=== PATIENT | female | born 1995 | race Caucasian/White ===

== ENCOUNTER 2020-11-07 08:16 | Observation (INO) | payer OTHER ==
[2020-11-07] MEDS ORDERED: LORazepam 2 MG/ML INJ IV STA (08:36)
[2020-11-07] MEDS ORDERED: SODIUM CHLORIDE 0.9% 1,000 ML IV STA (08:36)
--- NOTE | 2020-11-07 08:42 | ED ---
General Adult HPI - General Chief complaint: Chest Pain Stated complaint: Chest pain/Right side numbness Time Seen by Provider: 11/07/20 08:22 Source: patient Mode of arrival: wheelchair Limitations: no limitations - History of Present Illness Initial comments: Dictation was produced using [employer] dictation software. please excuse any grammatical, word or spelling errors. This patient was cared for during a federal and state declared state of ergency secondary to Covid 19 Chief Complaint: 25-year-old female with no past medical history presents with chest pain, facial paresthesias and right upper extremity paresthesias History of Present Illness: 25-year-old female she states that she's been under a lot of stress over the last 24-48 hours due to family personal issues. Patient states that approximately midnight last night she began experiencing some sharp chest pain. States it was worse with breathing she denies any rad iation of symptoms. At approximately 3 AM this morning she noted that her whole right face was strange. She describes it as though it felt like it was swollen. She also states that she had similar sensation to her entire right upper extremity. Patient has any history of stroke. She denies any medical complications. She does have an IUD for control. Takes no other medications at this time. Patient states she does complain of headache but she has headaches often. Patient denies any history of diagnosis of anxiety. No nausea vomiting. Denies any constitutional symptoms. The ROS documented in this emergency department record has been reviewed and confirmed by me. Those systems with pertinent positive or negative responses have been documented in the HPI. All other systems are other negative and/or noncontributory. PHYSICAL EXAM: General Impression: Alert and oriented x3, not in acute distress HEENT: Normocephalic atraumatic, extra-ocular movements intact, pupils equal and reactive to light bilaterally, mucous membranes moist. Cardiovascular: Heart regular rate and rhythm, no murmurs Chest: Able to complete full sentences, no retractions, no tachypnea, lungs clear to auscultation bilaterally Abdomen: abdomen soft, non-tender, non-distended, no organomegaly Musculoskeletal: Pulses present and equal in all extremities, no peripheral edema Motor: no focal deficits noted Neurological: CN II-XII grossly intact, NIH of 1 for abnormal sensation to light touch to the right lower face, there is no facial droop. Rest of NIH score Skin: Intact with no visualized rashes Psych: Tearful, anxious ED course: 25 yo Year old female presents with chest pain and focal neurologic deficit. Vital signs upon arrival shows heart rate of 128, rest of vital signs upon arrival are within acceptable limits. Patient's physical examination is mostly benign. She does complain of some abnormal sensation to light touch of the right lower face. Rest of neurologic exam is normal. She does appear to be moderately anxious. She does report that she's been severely anxious over the last 12 hours. At this point is unlikely that patient's symptoms represent CVA and more likely anxiety reaction. She does not have a murmur to suggest a patent foramen ovale.9:50 AM: reevaluated after having been administered anxiolytic. She still continues to have abnormal sensation to the right lower face. Given that its forehead sparing of some concern of central process causing facial paresthesias. Given that there was some involvement with her right upper extremity recently there is suspicion of CVA.Lavatory evaluation obtained. CBC, metabolic panel is unremarkable. Chest x-ray and brain CT are negative. Patient reevaluated at 11 AM and continues to complain of right lower facial paresthesias. Given that patient has persistent symptoms that is unresolved with anxiolytics we'll have patient admitted to observation with consultation to neurology. EKG interpretation: Ventricular rate 114, sinus tachycardia, [place] interval 160, QRS 80, QTc 432. No [place] prolongation, no QTC prolongation, no ST or T-wave changes noted. No old EKG for comparison. Overall, this EKG is unremarkable - Related Data Home Medications Medication Instructions Recorded Confirmed Ibuprofen [Advil] 800 mg PO Q8HR PRN 11/07/20 11/07/20 Levonorgestrel [Mirena] 1 dose IY DIRECTED 11/07/20 11/07/20 Allergies Allergy/AdvReac Type Severity Reaction Status Date / Time No Known Allergies Allergy Verified 11/07/20 09:32 Review of Systems ROS Statement: Those systems with pertinent positive or pertinent negative responses have been documented in the HPI. ROS Other: All systems not noted in ROS Statement are negative. Past Medical History Past Medical History: No Reported History History of Any Multi-Drug Resistant Organisms: None Reported Past Surgical History: No Surgical Hx Reported Past Psychological History: No Psychological Hx Reported Smoking Status: Never smoker Past Alcohol Use History: None Reported Past Drug Use History: None Reported General Exam Limitations: no limitations Course Vital Signs 11/07/20 11/07/20 11/07/20 08:18 09:20 10:00 Temperature 99.2 F Pulse Rate 128 H 101 H Respiratory 18 18 18 Rate Blood Pressure 148/85 114/70 O2 Sat by Pulse 97 97 97 Oximetry Medical Decision Making - Lab Data Result diagrams: 11/07/20 09:31 11/07/20 09:31 Lab Results 11/07/20 11/07/20 11/07/20 Range/Units 08:36 09:31 09:31 WBC 6.0 (3.8-10.6) k/uL RBC 4.99 (3.80-5.40) m/uL Hgb 14.4 (11.4-16.0) gm/dL Hct 43.1 (34.0-46.0) % MCV 86.5 (80.0-100.0) fL MCH 28.8 (25.0-35.0) pg MCHC 33.4 (31.0-37.0) g/dL RDW 13.2 (11.5-15.5) % Plt Count 239 (150-450) k/uL MPV 6.8 Neutrophils % 75 % Lymphocytes % 11 % Monocytes % 10 % Eosinophils % 2 % Basophils % 1 % Neutrophils # 4.5 (1.3-7.7) k/uL Lymphocytes # 0.6 L (1.0-4.8) k/uL Monocytes # 0.6 (0-1.0) k/uL Eosinophils # 0.1 (0-0.7) k/uL Basophils # 0.0 (0-0.2) k/uL PT (9.0-12.0) sec INR (<1.2) APTT (22.0-30.0) sec Sodium 138 (137-145) mmol/L Potassium 4.4 (3.5-5.1) mmol/L Chloride 105 (98-107) mmol/L Carbon Dioxide 24 (22-30) mmol/L Anion Gap 9 mmol/L BUN 12 (7-17) mg/dL Creatinine 0.85 (0.52-1.04) mg/dL Est GFR (CKD-EPI)AfAm >90 (>60 ml/min/1.73 sqM) Est GFR (CKD-EPI)NonAf >90 (>60 ml/min/1.73 sqM) Glucose 113 H (74-99) mg/dL Calcium 9.5 (8.4-10.2) mg/dL Total Bilirubin 0.5 (0.2-1.3) mg/dL AST 26 (14-36) U/L ALT 26 (4-34) U/L Alkaline Phosphatase 68 (38-126) U/L Total Protein 7.5 (6.3-8.2) g/dL Albumin 4.4 (3.5-5.0) g/dL Urine HCG, Qual Not Detected (Not Detectd) 11/07/20 Range/Units 09:31 WBC (3.8-10.6) k/uL RBC (3.80-5.40) m/uL Hgb (11.4-16.0) gm/dL Hct (34.0-46.0) % MCV (80.0-100.0) fL MCH (25.0-35.0) pg MCHC (31.0-37.0) g/dL RDW (11.5-15.5) % Plt Count (150-450) k/uL MPV Neutrophils % % Lymphocytes % % Monocytes % % Eosinophils % % Basophils % % Neutrophils # (1.3-7.7) k/uL Lymphocytes # (1.0-4.8) k/uL Monocytes # (0-1.0) k/uL Eosinophils # (0-0.7) k/uL Basophils # (0-0.2) k/uL PT 10.3 (9.0-12.0) sec INR 1.0 (<1.2) APTT 25.8 (22.0-30.0) sec Sodium (137-145) mmol/L Potassium (3.5-5.1) mmol/L Chloride (98-107) mmol/L Carbon Dioxide (22-30) mmol/L Anion Gap mmol/L BUN (7-17) mg/dL Creatinine (0.52-1.04) mg/dL Est GFR (CKD-EPI)AfAm (>60 ml/min/1.73 sqM) Est GFR (CKD-EPI)NonAf (>60 ml/min/1.73 sqM) Glucose (74-99) mg/dL Calcium (8.4-10.2) mg/dL Total Bilirubin (0.2-1.3) mg/dL AST (14-36) U/L ALT (4-34) U/L Alkaline Phosphatase (38-126) U/L Total Protein (6.3-8.2) g/dL Albumin (3.5-5.0) g/dL Urine HCG, Qual (Not Detectd) Disposition Clinical Impression: Neurological deficit present Disposition: ADMITTED IP TO THIS [facility] Condition: Fair Referrals: None,Stated [Primary Care Provider] - 1-2 days Decision Time: 11:02
[2020-11-07 09:58] LABS: Basophils % (A) 1 %; Eosinophils # (A) 0.1 k/uL (0-0.7); Eosinophils % (A) 2 %; HCT 43.1 % (34.0-46.0); HGB 14.4 gm/dL (11.4-16.0); Lymphocytes # (A) 0.6 k/uL (1.0-4.8); Lymphocytes % (A) 11 %; MCH 28.8 pg (25.0-35.0); MCHC 33.4 g/dL (31.0-37.0); MCV 86.5 fL (80.0-100.0); Mean Platelet Volume 6.8; Monocytes # (A) 0.6 k/uL (0-1.0); Monocytes % (A) 10 %; Neutrophils # (A) 4.5 k/uL (1.3-7.7); Neutrophils % (A) 75 %; Platelet Count 239 k/uL (150-450); RBC 4.99 m/uL (3.80-5.40); RDW 13.2 % (11.5-15.5)
[2020-11-07 10:02] LABS: Partial Thromboplastin Time 25.8 sec (22.0-30.0); Prothrombin Time 10.3 sec (9.0-12.0)
[2020-11-07 10:03] LABS: ALT 26 U/L (4-34); AST 26 U/L (14-36); African American GFR (CKD) >90 (>60 ml/min/1.73 sqM); Albumin 4.4 g/dL (3.5-5.0); Alkaline Phosphatase 68 U/L (38-126); Anion Gap 9 mmol/L; Blood Urea Nitrogen 12 mg/dL (7-17); Calcium 9.5 mg/dL (8.4-10.2); Carbon Dioxide 24 mmol/L (22-30); Chloride 105 mmol/L (98-107); Glucose 113 mg/dL (74-99); Non-African American GFR(CKD) >90 (>60 ml/min/1.73 sqM); Potassium 4.4 mmol/L (3.5-5.1); Sodium 138 mmol/L (137-145); Total Bilirubin 0.5 mg/dL (0.2-1.3); Total Protein 7.5 g/dL (6.3-8.2)
--- NOTE | 2020-11-07 10:44 | CT ---
EXAMINATION TYPE: CT brain wo con DATE OF EXAM: 11/07/2020 COMPARISON: None. HISTORY: headache, dizziness CT DLP: 1031.4 mGycm. Automated Exposure Control for Dose Reduction was Utilized. TECHNIQUE: CT scan of the head is performed without contrast. FINDINGS: There is no acute intracranial hemorrhage, mass effect, or midline shift identified. The ventricles and sulci are within normal limits in size. Merida-white matter differentiation is maintain ed. The globes are intact and the visualized sinuses are clear. IMPRESSION: Unremarkable study.
--- NOTE | 2020-11-07 10:53 | XR ---
EXAMINATION TYPE: XR chest 2V DATE OF EXAM: 11/07/2020 COMPARISON: NONE HISTORY: Chest pain. Right-sided facial numbness. TECHNIQUE: Frontal and lateral views of the chest are obtained. FINDINGS: There is no focal air space opacity, pleural effusion, or pneumothorax seen. The cardiac silhouette size is within normal limits. The osseous structures are intact. IMPRESSION: No acute cardiopulmonary process.
[2020-11-07] MEDS ORDERED: ONDANSETRON 4 MG/2 ML VIAL IVP STA (11:00)
[2020-11-07] MEDS ORDERED: KETOROLAC 15 MG/ML 1 ML VIAL IVP STA (11:00)
[2020-11-07] MEDS ORDERED: diphenhydrAMINE 50 MG/ML 1 ML VIAL IVP STA (11:00)
[2020-11-07] MEDS ORDERED: ASPIRIN 81 MG PO STA (11:00)
[2020-11-07] MEDS ORDERED: NALOXONE 0.4 MG/ML 1 ML VIAL IV PRN (11:02)
[2020-11-07] MEDS ORDERED: PROCHLORPERAZINE INJ 10 MG/2 ML VIAL IVP PRN (11:16)
[2020-11-07] MEDS: PANTOPRAZOLE 40 MG/10 ML VIAL IVP SCH (11:26)
[2020-11-07] MEDS: SODIUM CHLORIDE 0.9% 1,000 ML IV SCH (11:26)
--- NOTE | 2020-11-07 12:31 | P.HPIM ---
History of Present Illness Patient is a pleasant 25-year-old female came in with complaints of retrosternal chest pain which is burning sensation which has been present since yesterday without any diaphoresis without any nausea lightheadedness patient was also complaining of paresthesias in the right arm as well as right lower face below the right eye. Patient of had a CT of the head which did not show any significant abnormality showed some nonspecific air ST-T wave changes in lead 5. Patient troponin is negative. Patient and his significant family history of premature coronary artery disease. Patient is not a smoker doesn't have any other medical issues. Patient does take Motrin on regular basis for her headache she was diagnosed with migraine patient has complaints of migraine with aura. was also complaining of some generalized body aches although is not exposed to anyone with Covid 19 Review of Systems REVIEW OF SYSTEMS: CONSTITUTIONAL: No fever, no malaise, no fatigue. HEENT: No recent visual problems or hearing problems. Denied any sore throat. CARDIOVASCULAR: No orthopnea, PND, no palpitations, no syncope. PULMONARY: No shortness of breath, no cough, no hemoptysis. GASTROINTESTINAL: No diarrhea, no nausea, no vomiting. NEUROLOGICAL: As mentioned in HPI HEMATOLOGICAL: Denies any bleeding or petechiae. GENITOURINARY: Denies any burning micturition, frequency, or urgency. MUSCULOSKELETAL/RHEUMATOLOGICAL: Denies any joint pain, swelling, or any muscle pain. ENDOCRINE: Denies any polyuria or polydipsia. The rest of the 14-point review of systems is negative. Past Medical History Past Medical History: No Reported History History of Any Multi-Drug Resistant Organisms: None Reported Past Surgical History: No Surgical Hx Reported Past Psychological History: No Psychological Hx Reported Smoking Status: Never smoker Past Alcohol Use History: None Reported Past Drug Use History: None Reported Medications and Allergies Home Medications Medication Instructions Recorded Confirmed Type Ibuprofen [Advil] 800 mg PO Q8HR PRN 11/07/20 11/07/20 History Levonorgestrel [Mirena] 1 dose IY DIRECTED 11/07/20 11/07/20 History Allergies Allergy/AdvReac Type Severity Reaction Status Date / Time No Known Allergies Allergy Verified 11/07/20 09:32 Physical Exam Vitals: Vital Signs Temp Pulse Resp BP Pulse Ox 11/07/20 11:00 115 H 18 123/90 97 11/07/20 10:00 18 97 11/07/20 09:20 101 H 18 114/70 97 11/07/20 08:18 99.2 F 128 H 18 148/85 97 Intake and Output 11/06/20 11/07/20 11/07/20 22:59 06:59 14:59 Other: Weight 81.647 kg PHYSICAL EXAMINATION: GENERAL: The patient is alert and oriented x3, not in any acute distress. Well developed, well nourished. HEENT: Pupils are round and equally reacting to light. EOMI. No scleral icterus. No conjunctival pallor. Normocephalic, atraumatic. No pharyngeal erythema. No thyromegaly. CARDIOVASCULAR: S1 and S2 present. No murmurs, rubs, or gallops. PULMONARY: Chest is clear to auscultation, no wheezing or crackles. ABDOMEN: Soft, nontender, nondistended, normoactive bowel sounds. No palpable organomegaly. MUSCULOSKELETAL: No joint swelling or deformity. EXTREMITIES: No cyanosis, clubbing, or pedal edema. NEUROLOGICAL: Gross neurological examination did not reveal any focal deficits. SKIN: No rashes. Results CBC & Chem 7: 11/07/20 09:31 11/07/20 09:31 Labs: Abnormal Lab Results - Last 24 Hours (Table) 11/07/20 11/07/20 11/07/20 Range/Units 09:31 09:31 09:31 Lymphocytes # 0.6 L (1.0-4.8) k/uL D-Dimer 0.86 H (<0.60) mg/L FEU Glucose 113 H (74-99) mg/dL Coronavirus (PCR) (Not Detectd) 11/07/20 Range/Units 11:20 Lymphocytes # (1.0-4.8) k/uL D-Dimer (<0.60) mg/L FEU Glucose (74-99) mg/dL Coronavirus (PCR) Detected A (Not Detectd) Assessment and Plan Plan: 1 chest pain patient has a retrosternal burning sensation mostly consistent with the gastroesophageal reflux disease. Patient will be started on Protonix. Discontinue all nonsteroidal anti-inflammatory medications will also rule out acute coronary syndromes and cardiology will be consulted because of some T-wave inversions in lead 5. Although patient chest pain is atypical for coronary artery disease. -Sinus Tachycardia probably secondary to anxiety patient is sinus tachycardia and anxiety does explain most of her symptoms -Paresthesias of the right arm as well as the right lower face: CT of the head is negative neurology was consulted by year. -History of migraine with aura. Use Compazine IV for migraine attacks. If patient needs more than 2 dose of 10 mg of Compazine and patient will be given Benadryl to avoid any extrapyramidal side effects from Compazine. -DVT prophylaxis early ambulation
--- NOTE | 2020-11-07 13:19 | CT ---
EXAMINATION TYPE: CT angio chest DATE OF EXAM: 11/07/2020 1:02 PM COMPARISON: None HISTORY: postive d dimer CT DLP: 348.2 mGycm Automated exposure control for dose reduction was used. CONTRAST: CTA scan of the thorax is performed with IV Contrast, patient injected with 100 mL of Isovue 370, pul monary embolism protocol. . FINDINGS: LUNGS: Patchy areas of groundglass changes are seen in the right upper lobe and posteriorly bilateral lower lobes greater on the left. No pleural effusion or pneumothorax. No sizable pulmonary nodule. MEDIASTINUM: There is limited exam due to artifact limiting evaluation of the pulmonary arteries. Can not exclude a filling defect within the left lower lobe distal branch or within the right upper lobe. Heart size is prominent. Aorta of normal caliber. OTHER: Hypodensities within the liver are indeterminant with the largest measuring approximately 1 c m near the caudate lobe measuring approximate 14 Hounsfield units. Small hiatal hernia noted. IMPRESSION: 1. Limited assessment of the pulmonary arteries due to artifact. Could not exclude left lower lobe or right upper lobe small distal branch embolism. Correlate clinically and with VQ scan as clinically w arranted given limitation of exam. 2. Subsegmental groundglass changes may been the basis of atelectasis correlate clinically to exclude early pneumonitis.
--- NOTE | 2020-11-07 13:41 | P.CRDCN ---
History of Present Illness History of present illness: HISTORY OF PRESENTING ILLNESS This is a pleasant 25-year-old female with no significant past medical history. 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 We have been asked to see in consultation for chest pain. Patient is seen and examined in the emergency department . Mid sternal 8/10 chest pain started yesterday at noon, and lasted all day. Pain radiates to her right breast. At night, she took a hot bath and started having shortness of breath and lightheadedness. Chest pain does feel sharp at times. Associated symptoms include cough, shortness of breath, fatigue, numbness to right side of face. Chest pain worsens with deep breathing and with palpation of chest. Does not change with activity. Denies symptoms of fever, chills, orthopnea, palpitations, lower extremity edema. Patient denies history of diabetes, stroke, hypertension, [place], family heart di sease. Patients states she does not take any medication. She works for a [employer] company, has three kids, does drink caffeine. Denies alcohol and illicit drug use. Laboratory data reviewed, Covid 19 positive, WBC 6.0, hemoglobin 14.4, platelets 239, d-dimer 0.86, sodium 138, potassium 4.4, renal function stable with creatinine 0.85 BUN/creatinine 12, troponin negative 1. Vital signs BP 122/90 heart rate 1:15 temp 99.2 SpO2 97% on room air DIAGNOSTICS EKG reveals sinus tachycardia no acute ST- Twave changes. Chest xray no acute cardiopulmonary process. Brain CT- unremarkable CT chest- Limited assessment of the pulmonary arteries due to artifact- could not exclude left lower lobe or right upper lobe small distal branch embolism. Correlate clinically and with VQ scan as clinically warranted given limited exam. Patchy areas of groundglass changes are seen in the right upper lobe and posteriorly bilateral lower lobes greater on the left REVIEW OF SYSTEMS At the time of my exam: CONSTITUTIONAL: Denies fever or chills. CARDIOVASCULAR: +chest pain, +shortness of breath, Denies orthopnea, PND or palpitations. RESPIRATORY: + cough. GASTROINTESTINAL: Denies abdominal pain, diarrhea, constipation, nausea or vomiting. MUSCULOSKELETAL: Denies myalgias. NEUROLOGIC: +numbness to right side of face, +numbness to right arm. Denies tingling, headacbe or weakness. ENDOCRINE: + fatigue Denies weight change, polydipsia or polyurina. GENITOURINARY: Denies burning, hematuria or urgency with micturation. HEMATOLOGIC: Denies history of anemia or bleeding. PHYSICAL EXAMINATION CONSTITUTIONAL: No apparent distress. HEENT: Head is normocephalic. Pupils are equal, round. Sclerae anicteric. Mucous membranes of the mouth are moist. No JVD. No carotid bruit. CHEST EXAMINATION: Lungs are clear to auscultation. No chest wall tenderness is noted on palpation or with deep breathing. HEART EXAMINATION: Regular rate and rhythm. S1, S2 heard. No murmurs, gallops or rub. ABDOMEN: Soft, nontender. Positive bowel sounds. EXTREMITIES: 2+ peripheral pulses, no lower extremity edema and no calf tenderness. NEUROLOGIC EXAMINATION: Patient is awake, alert and oriented x3. ASSESSMENT -Covid-19 Infection -Atypical chest pain PLAN -Patient with atypical chest pain. EKG with no acute changes, troponin negative unlikely ACS. Most likely related to COVID-19 infection. -We will sign off at this time, thank you for this consult. Nurse Practitioner note has been reviewed, I agree with a documented findings and plan of care. Patient was seen and examined. Past Medical History Past Medical History: No Reported History History of Any Multi-Drug Resistant Organisms: None Reported Past Surgical History: No Surgical Hx Reported Past Psychological History: No Psychological Hx Reported Smoking Status: Never smoker Past Alcohol Use History: None Reported Past Drug Use History: None Reported Medications and Allergies Home Medications Medication Instructions Recorded Confirmed Type Ibuprofen [Advil] 800 mg PO Q8HR PRN 11/07/20 11/07/20 History Levonorgestrel [Mirena] 1 dose IY DIRECTED 11/07/20 11/07/20 History Allergies Allergy/AdvReac Type Severity Reaction Status Date / Time No Known Allergies Allergy Verified 11/07/20 09:32 Physical Exam Vitals: Vital Signs Temp Pulse Resp BP Pulse Ox 11/07/20 13:14 99.2 F 115 H 18 123/90 97 11/07/20 11:00 115 H 18 123/90 97 11/07/20 10:00 18 97 11/07/20 09:20 101 H 18 114/70 97 11/07/20 08:18 99.2 F 128 H 18 148/85 97 Intake and Output 11/06/20 11/07/20 11/07/20 22:59 06:59 14:59 Other: Weight 81.647 kg Results 11/07/20 09:31 11/07/20 09:31 Cardiac Enzymes 11/07/20 11/07/20 Range/Units 09:31 09:31 AST 26 (14-36) U/L Troponin I <0.012 (0.000-0.034) ng/mL Coagulation 11/07/20 Range/Units 09:31 PT 10.3 (9.0-12.0) sec APTT 25.8 (22.0-30.0) sec CBC 11/07/20 Range/Units 09:31 WBC 6.0 (3.8-10.6) k/uL RBC 4.99 (3.80-5.40) m/uL Hgb 14.4 (11.4-16.0) gm/dL Hct 43.1 (34.0-46.0) % Plt Count 239 (150-450) k/uL Comprehensive Metabolic Panel 11/07/20 Range/Units 09:31 Sodium 138 (137-145) mmol/L Potassium 4.4 (3.5-5.1) mmol/L Chloride 105 (98-107) mmol/L Carbon Dioxide 24 (22-30) mmol/L BUN 12 (7-17) mg/dL Creatinine 0.85 (0.52-1.04) mg/dL Glucose 113 H (74-99) mg/dL Calcium 9.5 (8.4-10.2) mg/dL AST 26 (14-36) U/L ALT 26 (4-34) U/L Alkaline Phosphatase 68 (38-126) U/L Total Protein 7.5 (6.3-8.2) g/dL Albumin 4.4 (3.5-5.0) g/dL Current Medications Generic Name Dose Route Start Last Admin Trade Name Freq PRN Reason Stop Dose Admin Acetaminophen 650 mg 11/07/20 11:02 Acetaminophen Tab 325 Mg Tab PO Q6HR PRN Mild Pain or Fever > 100.5 Sodium Chloride 1,000 mls @ 20 mls/hr 11/07/20 11:15 11/07/20 11:26 Saline 0.9% IV 20 mls/hr .Q24H DELONTE Administration Naloxone HCl 0.2 mg 11/07/20 11:02 Naloxone 0.4 Mg/Ml 1 Ml Vial IV Q2M PRN Opioid Reversal Pantoprazole Sodium 40 mg 11/07/20 11:15 11/07/20 11:26 Pantoprazole 40 Mg/10 Ml Vial IVP 40 mg DAILY DELONTE Administration Prochlorperazine Edisylate 10 mg 11/07/20 11:16 Prochlorperazine Inj 10 Mg/2 Ml Vial IVP Q6H PRN Nausea And Vomiting Intake and Output 11/06/20 11/07/20 11/07/20 22:59 06:59 14:59 Other: Weight 81.647 kg Patient Weight 11/08/20 06:59 Weight 81.647 kg 11/07/20 09:31 11/07/20 09:31
[2020-11-07] MEDS: ACETAMINOPHEN TAB 325 MG TAB PO PRN (19:42)
--- NOTE | 2020-11-08 09:09 | P.CNNES ---
History of Present Illness Consult date: 11/07/20 Requesting physician: Alexis Hedrick Reason for Consult: Suspect CVA History of Present Illness: Patient is a 25-year-old female came to the hospital this morning at 8:16 AM came to the hospital for chest pain and facial paresthesias and right upper extremity paresthesias. Patient states that yesterday she was working around the house, when around noon, she developed chest pain, which she rated 6/10. It was not as bad earlier. The chest pain continued, but around midnight last night, the chest pain got worse, which she rated 9/10. She also developed numbness of the right side of the face, neck, right shoulder to the right upper extremity all the way to the fingers. The symptoms got worse at around 2 AM. Patient states that her right side of the face felt drawn, although her did notnotice any facial droop. No slurred speech. Patient did not want to bring her children to the ER, therefore she waited until she got a coverage analyst at around 8, therefore she decided to come to the ER. Patient states that numbness of the right upper extremity has resolved, but she still has some persistent numbness of the right side of the cheek. Patient states that for the last 24-48 hours, patient has been under a lot of stress for some family issues. Vital signs on arrival blood pressure 148/85, pulse rate 128, temperature 99.2. CT head is normal. Visualized paranasal sinuses are normal. Chest x-ray is normal. EKG shows sinus tachycardia, nonspecific ST and T-wave abnormality. CTA of the chest shows limited assessment of the pulmonary arteries due to artifact. Could not exclude left lower lobe or right upper lobe small distal branch embolism. Correlate clinically with VQ scan as clinically warranted given limitation of exam. Subsegmental groundglass changes may be on the basis of atelectasis correlate clinically to exclude early pneumonitis. Patient's blood test shows normal CBC, PT/PTT,'s Chem-7. Hepatic panel is normal, urine hCG negative, maldonado virus PCR. Patient denies any fever or chills. She has just developed cough while in the hospital. She does not remember any sick contacts. Patient denies any tobacco, alcohol, diabetes hypertension. Never had history of strokes or TIA. Patient currently is on Mirena IUD for last 5 years. Patient has history of migraines since she was age 8 years of age. At present she gets migraines 2 or 3 times a week. She does have positive family history of migraines in her mother and grandmother as well. Patient states that yesterday at around noon when the chest pain started, she also started with a migraine, with got worse at midnight which she rated 9/10. Patient however never had any aura associated with migraine, therefore this right facial and arm numbness is new. Review of Systems As above in detail. All other 14 points of review of systems completely unremarkable. Past Medical History Past Medical History: No Reported History History of Any Multi-Drug Resistant Organisms: None Reported Past Surgical History: No Surgical Hx Reported Past Psychological History: No Psychological Hx Reported Smoking Status: Never smoker Past Alcohol Use History: None Reported Past Drug Use History: None Reported Medications and Allergies Home Medications Medication Instructions Recorded Confirmed Type Ibuprofen [Advil] 800 mg PO Q8HR PRN 11/07/20 11/07/20 History Levonorgestrel [Mirena] 1 dose IY DIRECTED 11/07/20 11/07/20 History Allergies Allergy/AdvReac Type Severity Reaction Status Date / Time No Known Allergies Allergy Verified 11/07/20 09:32 Physical Examination - Vital Signs Vital Signs: Vital Signs Temp Pulse Pulse Resp BP BP Pulse Ox 11/07/20 15:00 98.3 F 92 22 129/84 96 11/07/20 13:14 99.2 F 115 H 18 123/90 97 11/07/20 13:00 99.2 F 115 H 18 123/90 97 11/07/20 11:00 115 H 18 123/90 97 11/07/20 10:00 18 97 11/07/20 09:20 101 H 18 114/70 97 11/07/20 08:18 99.2 F 128 H 18 148/85 97 Intake and Output 11/07/20 11/07/20 11/07/20 06:59 14:59 22:59 Intake Total 200 Balance 200 Intake: Oral 200 Other: Weight 81.647 kg On examination patient is a young female, in no acute distress. Patient is alert awake oriented to time place and person. Speech and language functions are normal. Attention, concentration and fund of knowledge is adequate. On cranial examination pupils are round and reactive to light, visual naranjo are full on confrontation, extraocular muscles are intact with no nystagmus. Face is symmetric, tongue protrudes the midline. Palatal elevation and sensation normal, hearing and shoulder shrug normal, facial sensation is normal. On muscle strength testing there is mild right pronation no drift. The strength is normal in arms and legs distally and proximally. Reflexes are symmetric, plantars downgoing sensory touch is equal with no neglect. No ataxia for rexbzy-ed-swfs testing tone and bulk of muscles normal. Gait normal. No obvious bruit, S1 and S2 audible. Abdomen soft nontender. Peripheral pulses present. No edema. Results - Laboratory Findings CBC and BMP: 11/07/20 09:31 11/07/20 09:31 Abnormal Lab Findings: Abnormal Labs 11/07/20 11/07/20 11/07/20 09:31 09:31 09:31 Lymphocytes # 0.6 L D-Dimer 0.86 H Glucose 113 H Coronavirus (PCR) 11/07/20 11:20 Lymphocytes # D-Dimer Glucose Coronavirus (PCR) Detected A Assessment and Plan Assessment: * 25-year-old female with long-standing history of migraine headaches, developed chest pain, and a migraine yesterday at around noon, which got worse at midnight, and then she started having numbness of the right side of the face and the arm. Right arm numbness resolved in a couple hours, but she has persistent numbness of right side of the cheek. Although patient has long- standing history of migraines, but she never had any aura associated with migraines. Patient is also in hypercoagulable state due to being on control pills, and Covid positive. Rule out TIA Plan: * Patient will undergo MRI of the brain to rule out CVA. * 2-D echo with bubble study to rule out PFO. * Continue aspirin 325 mg daily. * We will follow.
[2020-11-08] MEDS: ACETAMINOPHEN TAB 325 MG TAB PO PRN ×2 (09:14→19:52)
[2020-11-08] MEDS: ASPIRIN 325 MG TAB PO SCH (09:15)
[2020-11-08] MEDS: PANTOPRAZOLE 40 MG/10 ML VIAL IVP SCH (09:15)
--- NOTE | 2020-11-08 12:31 | ECHOF ---
Referral Reason:Right facial and arm numbness, rule out TIA/CVA MEASUREMENTS -------- HEIGHT: 160.0 cm WEIGHT: 81.6 kg BP: 111/80 RVIDd: 2.6 cm (< 3.3) IVSd: 1.1 cm (0.6 - 1.1) LVIDd: 4.6 cm (3.9 - 5.3) LVPWd: 1.2 cm (0.6 - 1.1) IVSs: 1.2 cm LVIDs: 3.2 cm LVPWs: 1.7 cm LAESV Index (A-L): 16.34 ml/m Ao Diam: 3.4 cm (2.0 - 3.7) AV Cusp: 2.4 cm (1.5 - 2.6) LA Diam: 3.5 cm (2.7 - 3.8) MV EXCURSION: 19.176 mm (> 18.000) MV EF SLOPE: 66 mm/s (70 - 150) EPSS: 0.6 cm MV E Rajeev: 0.54 m/s MV DecT: 137 ms MV A Rajeev: 0.59 m/s MV E/A Ratio: 0.93 FINDINGS -------- Sinus rhythm. This was a technically adequate study. The left ventricular size is normal. There is borderline concentric left ventricular hypertrophy. Overall left ventricular systolic function is normal with, an EF between 55 - 60 %. The diastolic filling pattern is normal for the age of the patient 11.61. The right ventricle is normal in size. Normal LA size by volume 22+/-6 ml/m2. The right atrial size is normal. Interatrial and interventricular septum intact. The aortic valve is trileaflet, and appears structurally normal. No aortic stenosis or regurgitation. Normal appearing mitral valve. No mitral regurgitation. The tricuspid valve appears structurally normal. No regurgitation noted Trace/mild (physiologic) pulmonic regurgitation. The aortic root size is normal. IVC Not well visulized. There is no pericardial effusion. CONCLUSIONS -------- 1. There is borderline concentric left ventricular hypertrophy. 2. Overall left ventricular systolic function is normal with, an EF between 55 - 60 %. 3. Normal LA size by volume 22+/-6 ml/m2. 4. The aortic valve is trileaflet, and appears structurally normal. No aortic stenosis or regurgitati on. 5. Normal appearing mitral valve. 6. Trace/mild (physiologic) pulmonic regurgitation. 7. There is no pericardial effusion. CARRIAGE OPERATOR: Yanelis Sanchez RDCS
[2020-11-08] MEDS: ENOXAPARIN 80 MG/0.8 ML SYRINGE SQ SCH ×2 (13:28→21:10)
[2020-11-08] MEDS: SODIUM CHLORIDE 0.9% 1,000 ML IV SCH (13:28)
--- NOTE | 2020-11-08 14:36 | P.PN ---
Subjective Progress Note Date: 11/08/20 Patient is a pleasant 25-year-old female came in with complaints of retrosternal chest pain which is burning sensation which has been present since yesterday without any diaphoresis without any nausea lightheadedness patient was also complaining of paresthesias in the right arm as well as right lower face below the right eye. Patient of had a CT of the head which did not show any significant abnormality showed some nonspecific air ST-T wave changes in lead 5. Patient troponin is negative. Patient and his significant family history of premature coronary artery disease. Patient is not a smoker doesn't have any other medical issues. Patient does take Motrin on regular basis for her headache she was diagnosed with migraine patient has complaints of migraine with aura. Patient was also complaining of some generalized body aches although is not exposed to anyone with Covid 19 11/08/2020 Patient is seen and evaluated in follow-up this morning he continues to have headache with little to no relief from Tylenol. Patient being evaluated and seen by cardiology along with neurology and an MRI of the brain is ordered and currently pending. She underwent 2-D echo showing borderline concentric left ventricular hypertrophy with overall LV systolic function normal with an EF between 55 and 60% with normal appearing mitral valve, no pericardial effusion, no regurgitation noted. She did have a chest CTA which was a limited exam due to artifact which could not completely exclude a left lower lobe or right upper lobe small distal branch embolism with some subsegmental groundglass changes mo st likely secondary to Covid 19. Patient will be started on Lovenox subcutaneous and will transition to oral Eliquis. Patient will be given a coupon for 1 free month as this is not covered with her insurance and will need follow-up with pulmonary and primary care provider. MRI currently pending and will await report. Review of systems: Constitutional: rePorts continued fatigue, no reports of fever, or chills Cardiovascular: reports of chest pain with no reports of palpitations Respiratory: Reports mild shortness of breath, occasional cough GI: reports intermittent nausea, no reports of vomiting, or diarrhea : No reports of dysuria or retention Neurovascular: No reports of weakness or numbness All medications have been reviewed Objective - Vital Signs Vital signs: Vital Signs Temp 98.2 F 11/08/20 07:00 Pulse 100 11/08/20 08:00 Resp 17 11/08/20 07:00 BP 126/81 11/08/20 07:00 Pulse Ox 98 11/08/20 07:00 Intake & Output 11/07/20 11/08/20 11/08/20 18:59 06:59 18:59 Intake Total 300 300 Balance 300 300 Weight 81.647 kg Intake: Oral 300 300 Other: Voiding Method Toilet # Voids 1 - Exam GENERAL: The patient is alert and oriented x3, not in any acute distress. Well developed, well nourished. HEENT: Pupils are round and equally reacting to light. EOMI. No scleral icterus. No conjunctival pallor. Normocephalic, atraumatic. No pharyngeal erythema. No thyromegaly. CARDIOVASCULAR: S1 and S2 present. No murmurs, rubs, or gallops. PULMONARY: Chest is clear to auscultation, no wheezing or crackles. ABDOMEN: Soft, nontender, nondistended, normoactive bowel sounds. No palpable organomegaly. MUSCULOSKELETAL: No joint swelling or deformity. EXTREMITIES: No cyanosis, clubbing, or pedal edema. NEUROLOGICAL: Gross neurological examination did not reveal any focal deficits. SKIN: No rashes. - Labs CBC & Chem 7: 11/07/20 09:31 11/07/20 09:31 Assessment and Plan Assessment: -chest pain patient has a retrosternal burning sensation mostly consistent with the gastroesophageal reflux disease. Patient will be started on Protonix. Discontinue all nonsteroidal anti-inflammatory medications will also rule out acute coronary syndromes and cardiology will be consulted because of some T-wave inversions in lead 5. Although patient chest pain is atypical for coronary artery disease. 2-D echo was normal and an EF of 55-60% -Acute Covid 19 infection -Elevated d-dimer secondary to above -Sinus Tachycardia probably secondary to anxiety patient is sinus tachycardia and anxiety does explain most of her symptoms -Paresthesias of the right arm as well as the right lower face: CT of the head is negative. Neurology following and ordered an MRI of the brain which is currently pending -History of migraine with aura. Use Compazine IV for migraine attacks. If patient needs more than 2 dose of 10 mg of Compazine and patient will be given Benadryl to avoid any extrapyramidal side effects from Compazine. -DVT prophylaxis: We'll initiate subcutaneous Lovenox Plan: Continue with current medications. Indeterminant CTA of the chest for PE and patient is not clinically behaving so although will start Lovenox subcutaneous a nd verified that Eliquis is not covered on insurance in case management following and will provide a coupon for 1 free month. She underwent 2-D echo which showed borderline concentric left ventricular hypertrophy with LV systolic function is normal with an EF of 55-60% with no regurgitation noted. MRI of the brain currently pending and neurology is following. Patient continues to have headaches although does have a history of migraine. Will likely have patient follow-up outpatient with neurology.
--- NOTE | 2020-11-08 15:43 | MR ---
MR brain without contrast HISTORY: Headache and dizziness, CVA, TIA Multiplanar multisequence imaging through the brain There is no restricted diffusion. There is no hemorrhage or hydrocephalus. Brain signal is maintained . There are normal vascular flow voids. Cerebellopontine angles, corpus callosum, pituitary, cervical medullary junction are normal. Orbits show symmetric appearance. Paranasal sinuses and mastoid air c ells are well aerated. IMPRESSION: Normal brain MRI
--- NOTE | 2020-11-08 17:38 | P.PN ---
Subjective Progress Note Date: 11/08/20 Patient states her migraine is gone. Numbness is also gone. No new concerns. Objective - Vital Signs Vital signs: Vital Signs Temp 97.9 F 11/08/20 15:00 Pulse 98 11/08/20 15:00 Resp 16 11/08/20 15:00 BP 125/85 11/08/20 15:00 Pulse Ox 98 11/08/20 15:00 Intake & Output 11/07/20 11/08/20 11/08/20 18:59 06:59 18:59 Intake Total 300 300 Balance 300 300 Weight 81.647 kg Intake: Oral 300 300 Other: Voiding Method Toilet # Voids 1 1 - Exam Patient's mental status, speech and language functions are normal. More detailed examination deferred. - Labs CBC & Chem 7: 11/07/20 09:31 11/07/20 09:31 Assessment and Plan Assessment: * Possible TIA versus migraine with aura. Patient does have history of migraines in the past, but never had any aura associated with migraines. * Hypercoagulable state due to being on control pills and acute Covid infection. Plan: * MRI of the brain is normal, no evidence of CVA * 2-D echo showed borderline concentric LVH. EF is 55-60%. Normal left atrial size. Aortic valve is trileaflet and appears normal. * Continue aspirin 325 mg daily for 2-3 weeks until patient has active Covid infection. Then may DC aspirin. * Patient recommended to follow-up with the EDUCATIONAL AUDIOLOGIST regarding use of control pills and this current possible TIA.
--- NOTE | 2020-11-09 06:17 | CONS ---
CONSULTATION DATE OF SERVICE: 11/08/2020 REASON FOR CONSULTATION: COVID-19 infection. HISTORY OF PRESENT ILLNESS: The patient is a 25-year-old female presenting to the ER yesterday morning for evaluation of sharp chest pain. The patient is describing the pain to be more of the lower chest area on the left side, describing it to be worse with taking a deep breath with associated shortness of breath. The patient did have minimal cough but no sputum production. The patient denies having any headache or URI symptoms. Denies having any nausea, no vomiting. No abdominal pain and no diarrhea. The patient on presentation to the hospital did have a low-grade fever of 99.2 degrees Fahrenheit. The patient is saturating 98% on room air. The patient did have a normal white count with evidence of lymphopenia. D-dimer was 0.86. Electrolytes have been normal. Liver enzymes are normal. Sylvester PCR came back positive. The patient did have a chest x-ray that was negative for any acute cardiopulmonary process. The patient did have a CT angiogram of the chest, which was limited assessment and cannot exclude left lower lobe and right upper lobe embolism and some ground-glass changes suggestive of pneumonitis. Infectious disease was consulted for further management of her positive Covid testing. She did have an MRI of the brain that came back negative. REVIEW OF SYSTEMS: Positive points have been mentioned in HPI. Rest of the systems are negative. PAST MEDICAL HISTORY: No major illnesses. PAST SURGICAL HISTORY: No surgery. SOCIAL HISTORY: Denies smoking, drinking or drug use. FAMILY HISTORY: No pertinent findings noted. ALLERGIES: No known drug allergies. MEDICATIONS: The patient is currently on Tylenol, vitamin C, aspirin, Lovenox, Narcan, Protonix, Compazine, IV fluid, zinc sulfate. PHYSICAL EXAMINATION: VITAL SIGNS: Blood pressure 125/85 with a pulse of 98, temperature 97.9, she is 98% on room air. GENERAL DESCRIPTION: The patient is a middle-aged female lying in bed in no distress. No tachypnea or accessory muscles of respiration use. HEENT: Examination shows no pallor or scleral icterus. Oral mucous membrane is dry. No pharyngeal erythema or thrush. NECK: Trachea central, no thyromegaly. LUNGS: Unlabored breathing, clear to auscultation. No wheeze or crackles. HEART: S1, S2. Regular rate and rhythm. ABDOMEN: Soft. No tenderness. No guarding. No rigidity. No organomegaly. EXTREMITIES: No edema of the feet. SKIN: No rashes or mass palpable. NEUROLOGICAL: The patient is awake, alert, oriented x3. Mood and affect normal. LABS: Hemoglobin 14.4, white count 6, BUN of 12, creatinine 0.85. Sylvester PCR is positive. CT report as mentioned above. DIAGNOSTIC IMPRESSION: Patient admitted to the hospital predominantly with sharp chest pain, some shortness of breath in this patient who did have COVID-19. Did have elevated D-dimer with concern for pulmonary embolism, as seen on the CT which could be explaining her symptoms. As for the pneumonia, seems to be very mild in this patient who did not have any respiratory compromise or hypoxemia and need for any supplemental oxygen therapy. PLAN: 1. Recommend the patient started on further anticoagulation that may need to be completed per protocol for possible pulmonary embolism. 2. As far as COVID-19 infection, the patient will be treated symptomatically with zinc, vitamin C, no need for dexamethasone, as the patient is not hypoxic. 3. Was advised to keep the patient in the hospital for 24 hours for stabilization before discharge and care was discussed in detail with the admitting physician. Thank you for this consultation. Will follow this patient along with you. MMELISAL / IJN: [id number] /
[2020-11-09] MEDS ORDERED: PANTOPRAZOLE 40 MG TABLET PO SCH (07:30)
[2020-11-09] MEDS: ACETAMINOPHEN TAB 325 MG TAB PO PRN (07:35)
[2020-11-09] MEDS: ASPIRIN 325 MG TAB PO SCH (07:35)
[2020-11-09] MEDS: ENOXAPARIN 80 MG/0.8 ML SYRINGE SQ SCH (07:35)
[2020-11-09 07:45] VITALS: BP 130/85; PULSE 85; RESP 16; TEMP 98
[2020-11-09] MEDS ORDERED: ZINC SULFATE 220 MG CAP PO SCH (09:00)
[2020-11-09] MEDS ORDERED: ASCORBIC ACID 500 MG TAB PO SCH (09:00)
[2020-11-09 11:10] LABS: African American GFR (CKD) 101.6 (60.0-200.0); BUN/Creat Ratio 11.11 Ratio (12.00-20.00); C Reactive Protein 1.5 mg/dL (0.0-0.8); Calcium 9.8 mg/dL (8.7-10.3); Non-African American GFR(CKD) 87.6 (60.0-200.0); Potassium 4.3 mmol/L (3.5-5.5)
[2020-11-09] MEDS: SODIUM CHLORIDE 0.9% 1,000 ML IV SCH (12:26)
--- NOTE | 2020-11-09 15:26 | PN ---
PROGRESS NOTE DATE OF SERVICE: 11/09/2020 REASON FOR FOLLOWUP: COVID-19 infection. INTERVAL HISTORY: The patient was seen on rounds early this morning. The patient has been afebrile. She is feeling much better today. She is able to take a deep breath. Minimal cough. No nausea. No vomiting. No abdominal pain. No diarrhea. PHYSICAL EXAMINATION: Blood pressure 130/85, pulse of temperature 98. She is 100% on room air. General description is a middle-aged female lying in bed in no distress. RESPIRATORY SYSTEM: Unlabored breathing, clear to auscultation. No wheeze or crackle. HEART: S1, S2. Regular rate and rhythm. ABDOMEN: Soft, no tenderness. LABS: D-dimer is 1.11, creatinine 0.9. DIAGNOSTIC IMPRESSION AND PLAN: Patient with acute COVID-19 infection with concern for possible embolic event and pulmonary embolism. The patient responded with heparin. She will be transitioned to the [facility] and close outpatient followup. All her questions and concerns were answered. MMODL / IJN: [id number] /
--- NOTE | 2020-11-09 16:38 | P.DS ---
Providers Date of admission: 11/07/20 11:03 Expected date of discharge: 11/09/20 Attending physician: Rhianna Roberts Consults: 11/07/20 11:00 Consult Physician Routine Consulting Provider: Anton Cartagena Consult Reason/Comments: suspect CVA Do you want consulting provider notified?: Yes 11/07/20 12:26 Consult Physician Routine Consulting Provider: Trey Hdez Consult Reason/Comments: Chest Pain Do you want consulting provider notified?: Yes 11/08/20 10:19 Consult Physician Routine Consulting Provider: Nick Godwin Consult Reason/Comments: COVID Do you want consulting provider notified?: Yes Primary care physician: Stated None Hospital Course: Final Diagnosis -chest pain patient has a retrosternal burning sensation mostly consistent with the gastroesophageal reflux disease -Acute Covid 19 infection -Elevated d-dimer secondary to above -Sinus Tachycardia probably secondary to anxiety, improved -Paresthesias of the right arm as well as the right lower face: CT of the head is negative. MRI of the brain was negative as well -History of migraine with aura -DVT prophylaxis Discharge disposition Patient is being discharged in a stable condition with guarded prognosis to home. Patient will follow-up with Dr. araiza in the outpatient setting upon discharge. Patient also instructed to follow-up with pulmonary in the outpatient setting. She will continue on Eliquis and was given a coupon for 1 month free and will need follow-up with primary care provider in pulmonary for possible samples as her insurance will cost over $400 per month and patient is unable to afford. Total time taken is greater than 35 minutes. Hospital course Patient is a pleasant 25-year-old female came in with complaints of retrosternal chest pain which is burning sensation which has been present since yesterday without any diaphoresis without any nausea lightheadedness patient was also complaining of paresthesias in the right arm as well as right lower face below the right eye. Patient of had a CT of the head which did not show any significant abnormality showed some nonspecific air ST-T wave changes in lead 5. Patient troponin is negative. Patient and his significant family history of premature coronary artery disease. Patient is not a smoker doesn't have any other medical issues. Patient does take Motrin on regular basis for her headache she was diagnosed with migraine patient has complaints of migraine with aura. Patient was also complaining of some generalized body aches although is not exposed to anyone with Covid 19 11/08/2020 Patient is seen and evaluated in follow-up this morning he continues to have headache with little to no relief from Tylenol. Patient being evaluated and seen by cardiology along with neurology and an MRI of the brain is ordered and currently pending. She underwent 2-D echo showing borderline concentric left ventricular hypertrophy with overall LV systolic function normal with an EF between 55 and 60% with normal appearing mitral valve, no pericardial effusion, no regurgitation noted. She did have a chest CTA which was a limited exam due to artifact which could not completely exclude a left lower lobe or right upper lobe small distal branch embolism with some subsegmental groundglass changes most likely secondary to Covid 19. Patient will be started on Lovenox subcutaneous and will transition to oral Eliquis. Patient will be given a coupon for 1 free month as this is not covered with her insurance and will need follow-up with pulmonary and primary care provider. MRI currently pending and will await report. 11/09/2020 Patient is seen in follow-up this morning states her headache has subsided and denies any weakness in upper or lower extremities. Patient underwent brain MRI which was negative and neurology was following. Patient instructed to follow-up outpatient with neurology to discuss further migraine treatments. Patient recently obtained insurance and has not had a provider previously. Resources provided. Patient has a high deductible and the anticoagulant will cost her over $400 monthly which she is unable to afford and a coupon was provided for 1 free month and will follow up with pulmonary and primary in the outpatient setting for possible samples. Patient states she feels much better and denies any shortness of breath and would like to go home. Currently no reports of chest pain, shortness of breath, or palpitations. Patient is afebrile. No reports of nausea or vomiting and patient is tolerating diet. She will be discharged today. On exam vital signs are stable. Cardio S1, S2 are muffled. Respiratory system shows diminished breath sounds at the bases with no wheezing or rhonchi noted. Abdomen is soft and nontender. Nervous system shows no focal deficits. Please refer to medication reconciliation sheet for a list of medications. Patient Condition at Discharge: Fair Plan - Discharge Summary Discharge Rx Participant: No New Discharge Prescriptions: New Aspirin 325 mg PO DAILY 21 Days #21 tab Zinc Sulfate [Orazinc] 220 mg PO DAILY 30 Days #30 cap Pantoprazole [Protonix] 40 mg PO AC-BRKFST 30 Days #30 tablet. Acetaminophen Tab [Tylenol] 650 mg PO Q6HR PRN tab PRN Reason: Mild Pain Or Fever > 100.5 Ascorbic Acid [Vitamin C] 1,000 mg PO DAILY 30 Days #60 tab Apixaban [Eliquis Starter Pack (for VTE)] 0 mg PO DIRECTED 30 Days #1 pack Continue Levonorgestrel [Mirena] 1 dose IY DIRECTED Ibuprofen [Advil] 800 mg PO Q8HR PRN PRN Reason: Pain Discharge Medication List Ibuprofen [Advil] 800 mg PO Q8HR PRN 11/07/20 [History] Levonorgestrel [Mirena] 1 dose IY DIRECTED 11/07/20 [History] Acetaminophen Tab [Tylenol] 650 mg PO Q6HR PRN tab 11/09/20 [Rx] Apixaban [Eliquis Starter Pack (for VTE)] 0 mg PO DIRECTED 30 Days #1 pack 11/09/20 [Rx] Ascorbic Acid [Vitamin C] 1,000 mg PO DAILY 30 Days #60 tab 11/09/20 [Rx] Aspirin 325 mg PO DAILY 21 Days #21 tab 11/09/20 [Rx] Pantoprazole [Protonix] 40 mg PO AC-BRKFST 30 Days #30 tablet. 11/09/20 [Rx] Zinc Sulfate [Orazinc] 220 mg PO DAILY 30 Days #30 cap 11/09/20 [Rx] Follow up Appointment(s)/Referral(s): Bertin Araiza MD [REFERRING] - 1-2 Days Isidro Santiago MD [REFERRING] - 1 Week Bev Barboza MD [STAFF PHYSICIAN] - 10 Days Patient Instructions/Handouts: Coronavirus Disease 2019 (COVID-19), Pulmonary Embolism (DC), Migraine Headache (ED) Activity/Diet/Wound Care/Special Instructions: ok for work note please CT very suspicious for PE r blood clot in your lungs. With the Shortness of breath and sharp pain on inspiration and along with Labs doctor does believe you do have the blood clot. Discharge on Eliquis for one to three months. Script is for one month and PCP may be able to give free samples to cover further if need be. Activity Limited until follow-up follow up with primary care provider upon discharge Need to follow-up with primary care and pulmonary for the possibility of Eliquis samples as insurance has high deductible and costing over $400 per month and patient will require 3 month treatment Follow-up with pulmonary outpatient Follow up with neurology outpatient Encourage fluids and rest Monitor for fevers and treat with Tylenol and/or Motrin Continue to isolate where a mask and frequent handwashing Discharge/Stand Alone Forms: Work/Release Restrictions Form Discharge Disposition: HOME SELF-CARE
== END 2020-11-09 14:00 | disposition home or self-care (01) ==
LOC: EC 08:16 → 6NMEDSUR 11:03
PROVIDERS: ADMIT Internal Medicine; ATTEND Internal Medicine
DX: U07.1 COVID-19 (principal); J12.82 Pneumonia due to coronavirus disease 2019; G43.109 Migraine with aura, not intractable, without status migrainosus; F41.9 Anxiety disorder, unspecified; K44.9 Diaphragmatic hernia without obstruction or gangrene; D72.810 Lymphocytopenia; R79.89 Other specified abnormal findings of blood chemistry; Z79.1 Long term (current) use of non-steroidal anti-inflammatories (NSAID); Z97.5 Presence of (intrauterine) contraceptive device; Z63.8 Other specified problems related to primary support group; Z82.49 Family history of ischemic heart disease and other diseases of the circulatory system
CPT/HCPCS: 96376; 96372 ×2; 96361; 96374; 96375; 99285; 36415; 93005; 93306; 85379 ×2; 80053; 80048; 83615; 84484; 85025; 85610; 85730; 86140; 81025; 87635; 71046; 70450; 71275; 70551; G0378 ×3; J2060; J1200; J2405; J1650 ×2; C9113 ×2; Q9967

== ENCOUNTER → 2020-11-28 | Outpatient (CLI) | payer OTHER ==
--- NOTE | 2020-11-28 11:02 | US ---
EXAMINATION TYPE: US venous doppler duplex LE RT DATE OF EXAM: 11/28/2020 10:29 AM COMPARISON: NONE CLINICAL HISTORY: 25-year-old female M79.661 Pain in Rt lower limb, R22.41 Swelling. SIDE PERFORMED: Right TECHNIQUE: The lower extremity deep venous system is examined utilizing real time linear array sonog gonzalez with graded compression, doppler sonography and color-flow sonography. FINDINGS: VESSELS IMAGED: Common Femoral Vein Deep Femoral Vein Greater Saphenous Vein * Femoral Vein Popliteal Vein Small Saphenous Vein * Proximal Calf Veins (* superficial vessels) Right Leg: Negative for DVT IMPRESSION: No evidence for DVT within the right lower extremity imaged from the groin to the upper calf.
== END | disposition home or self-care (01) ==
LOC: RADUSWWP 10:10
PROVIDERS: ATTEND Family Medicine
DX: M79.661 Pain in right lower leg (principal); R22.41 Localized swelling, mass and lump, right lower limb